=== PATIENT | male | born 1960 | race Caucasian/White ===

== ENCOUNTER 2019-08-09 10:39 | Day surgery (SDC) | payer BC ==
[2019-08-08 08:23] VITALS: BMI 31.4
[~2019-08-09 10:39] MED LIST: LACTATED RINGERS 1,000 ML IV SCH; LIDOCAINE 1% 20 ML VIAL (10MG/ML) FOR IV START INTRADERMA PRN
[2019-08-09 10:53] VITALS: TEMP 98.2
[2019-08-09] MEDS ORDERED: PROPOFOL 10 MG/ML 20 ML VIAL IV ONE (11:42)
--- NOTE | 2019-08-09 12:04 | P.PCN ---
Date of Procedure: 08/09/19 Procedure(s) Performed: BRIEF HISTORY: Patient is a 59-year-old pleasant male scheduled for an elective colonoscopy as a part of value should prior history of colon polyps. Last endoscopy was 6 years ago. PROCEDURE PERFORMED: Colonoscopy with snare polypectomy. PREOPERATIVE DIAGNOSIS: History of colon polyps. IV sedation per Anesthesia. PROCEDURE: After informed consent was obtained, the patient, was brought into the endoscopy unit. IV sedation was administered by Anesthesia under continuous monitoring. Digital rectal examination was normal. Initially the Olympus CF-160 flexible video colonoscope was then inserted in the rectum, gradually advanced into the cecum without any difficulty. Careful examination was performed as the scope was gradually being withdrawn. Ileocecal valve and the appendiceal orifice were visualized and appeared normal. Prep was excellent. Mucosa of the cecum, ascending colon, appeared normal. In the transverse colon there was a 7 mm broad-based polyp removed by snare polypectomy. In the descending colon there was a 3 mm polyp removed by snare polypectomy. In the sigmoid colon there was a 1 cm pedunculated polyp removed by snare polypectomy. Rest of the transverse colon, descending colon, sigmoid colon, and rectum appeared normal. Scattered left sided diverticulosis seen. Retroflexion was performed in the rectum and no lesions were seen. The patient tolerated the procedure well. IMPRESSION: 7 mm transverse colon polyp status post polypectomy 3 mm descending colon polyp status post polypectomy 1 cm; sigmoid polyp status post polypectomy Scattered sigmoid diverticulosis RECOMMENDATIONS: Findings of this examination were discussed with the patient as well as his family. He was advised to follow with the biopsy results and have a repeat surveillance colonoscopy in 5 years from [place] the biopsy results..
[2019-08-09 12:13] VITALS: RESP 16
[2019-08-09 12:27] VITALS: BP 102/65; PULSE 51
== END 2019-08-09 12:54 | disposition home or self-care (01) ==
LOC: ORWHC2ENDO 10:39
PROVIDERS: ATTEND Internal Medicine Gastroenterology
DX: Z12.11 Encounter for screening for malignant neoplasm of colon (principal); D12.3 Benign neoplasm of transverse colon; D12.4 Benign neoplasm of descending colon; D12.5 Benign neoplasm of sigmoid colon; K57.30 Diverticulosis of large intestine without perforation or abscess without bleeding; E78.5 Hyperlipidemia, unspecified; N40.0 Benign prostatic hyperplasia without lower urinary tract symptoms; Z86.010 Personal history of colon polyps; Z79.899 Other long term (current) drug therapy
CPT/HCPCS: 88305; 45385; J2704

== ENCOUNTER → 2020-07-09 | Outpatient (CLI) | payer BC | END | disposition home or self-care (01) | LOC: LABWHC1 14:13 | PROVIDERS: ATTEND Family Medicine | DX: Z03.818 Encounter for observation for suspected exposure to other biological agents ruled out (principal) | CPT/HCPCS: U0003; C9803 ==

== ENCOUNTER → 2021-03-18 | Outpatient (CLI) | payer BC | END | disposition home or self-care (01) | LOC: LABWHC1 09:20 | PROVIDERS: ATTEND Urology | DX: R97.20 Elevated prostate specific antigen [PSA] (principal) | CPT/HCPCS: 36415; 84153 ==

== ENCOUNTER → 2021-07-02 | Outpatient (CLI) | payer BC ==
--- NOTE | 2021-07-02 09:44 | XR ---
EXAMINATION TYPE: XR chest 2V DATE OF EXAM: 07/02/2021 COMPARISON: Right RIBS 04/18/2014 HISTORY: Prostate cancer, postop TECHNIQUE: Frontal and lateral views of the chest are obtained. FINDINGS: There is no focal air space opacity, pleural effusion, or pneumothorax seen. The cardiac silhouette size is within normal limits. The osseous structures are intact. IMPRESSION: No acute cardiopulmonary process.
--- NOTE | 2021-07-02 12:37 | CT ---
EXAMINATION TYPE: CT abdomen pelvis w con DATE OF EXAM: 07/02/2021 COMPARISON: Correlation nuclear medicine bone scan 07/02/2021 HISTORY: 61-year-old male C61, Prostate cancer TECHNIQUE: Contiguous axial scanning of the abdomen and pelvis following administration of 100 ml Omn ipaque 300 IV contrast. Delayed images through the kidneys and coronal/sagittal reconstructions perf ormed. CT DLP: 1695 mGycm Automated exposure control for dose reduction was used. FINDINGS: Heart normal size without pericardial effusion. Some minimal dependent atelectasis in the lower lungs . Liver mildly enlarged at 19.9 cm. No focal lesion is seen. Portal venous system is patent. No biliary ductal dilatation. Gallbladder, adrenal glands, spleen, and pancreas show no gross abnormality. A few scattered small cortical cysts in the kidneys measuring up to 1.1 cm. Symmetric uptake and excr etion of contrast from both kidneys. No dilated small bowel, free fluid, or free air. No mesenteric or retroperitoneal lymphadenopathy. Normal appendix. [id number] stool within the colon. Diverticulosis of the junction of the desce nding and sigmoid colon. No pericolic inflammatory change. Mild to moderate circumferential bladder wall thickening. Prostate gland measures 4.6 cm wide. There may have been a prior TURP but there is lobulated soft tis domenica extending along the right lateral margin of the funneling measuring 2.2 cm, refer to coronal imag e 65. No abnormal fluid collection in the pelvis. Left-sided pelvic phlebolith. No pelvic lymphadenopathy s een. Bones: Mild degenerative change of the hips. Small sclerotic focus posterior right femoral head neck junction typical of a bone island. Similarly in the left superior femoral head and both acetabulum. D egenerated levoconvex scoliosis of the lumbar spine. There is a transitional lumbosacral segment with left L5 hemisacralization. Hypertrophic facet arthropathy mid to lower lumbar spine. There is otherw ise, no suspicious sclerotic lesion identified. IMPRESSION: 1. SUSPECT PRIOR TURP. CLINICALLY CORRELATE. THERE IS 2.2 CM ABNORMAL SOFT TISSUE BULGING ALONG THE R IGHT lateral margin of the funneling likely relating to the patient's prostate cancer. 2. No suspicious lymphadenopathy to suggest metastatic disease. A few punctate sclerotic foci about b oth hips are most typical of benign bone islands. No definite suspicious sclerotic lesions. Correlate with PSA values.
--- NOTE | 2021-07-02 15:49 | NM ---
EXAMINATION TYPE: NM bone scan whole body DATE OF EXAM: 07/02/2021 COMPARISON: CT 07/02/2021 HISTORY: Prostate cancer Delayed whole-body scanning was performed following the injection of 23.2 mCi Tc 99m MDP. Images acq uired 5.75 hours post injection. FINDINGS: Focus of uptake involving the posterior right 11th rib corresponds to a focus of prior rib fracture a nd healing. Soft tissue uptake is within normal limits. Uptake within the feet, knees, hands and wris ts, elbows, shoulders and sternoclavicular joints is likely degenerative. Uptake in the cervical spin e is likely due to facet arthropathy. IMPRESSION: No convincing evidence of bony metastatic disease.
== END | disposition home or self-care (01) ==
LOC: RADCTMAIN 07:56
PROVIDERS: ATTEND Urology
DX: C61 Malignant neoplasm of prostate (principal)
CPT/HCPCS: 71046; 74177; 78306; A9503; Q9967

== ENCOUNTER → 2021-09-15 | Outpatient (CLI) | payer BC | END | disposition home or self-care (01) | LOC: LABWHC1 08:19 | PROVIDERS: ATTEND Urology | DX: C61 Malignant neoplasm of prostate (principal) | CPT/HCPCS: 36415; 84153 ==

== ENCOUNTER → 2021-12-20 | Outpatient (CLI) | payer BC | END | disposition home or self-care (01) | LOC: LABWHC1 09:20 | PROVIDERS: ATTEND Urology | DX: C61 Malignant neoplasm of prostate (principal) | CPT/HCPCS: 36415; 84153 ==

== ENCOUNTER → 2022-06-01 | Outpatient (CLI) | payer BC | END | disposition home or self-care (01) | LOC: LABWHC1 11:51 | PROVIDERS: ATTEND Urology | DX: C61 Malignant neoplasm of prostate (principal) | CPT/HCPCS: 36415; 84153 ==

== ENCOUNTER → 2022-11-29 | Outpatient (CLI) | payer BC | END | disposition home or self-care (01) | LOC: LABWHC1 09:56 | PROVIDERS: ATTEND Urology | DX: C61 Malignant neoplasm of prostate (principal) | CPT/HCPCS: 36415; 84153 ==

== ENCOUNTER → 2023-08-24 | Outpatient (CLI) | payer MEDICARE ==
--- NOTE | 2023-08-31 09:08 | PE ---
EXAMINATION TYPE: PET CT fusion skull to thigh DATE OF EXAM: 08/24/2023 COMPARISON: CT abdomen and pelvis 07/02/2021 Prior PET/CT: None HISTORY: Prostate cancer TECHNIQUE: Following the intravenous administration of 6.37 millicuries gallium labeled PSMA, whole body images are performed from the skull base to the midthigh. Images are reviewed on the computer i n the coronal, axial, and sagittal planes. Reconstructed rotating images are created on independent workstation and reviewed on the computer. A localization and attenuation correction CT is performed in conjunction with the PET scan. DLP: 100 5. mGycm SCAN: Subsequent FINDINGS: NECK: Normal uptake is seen in the salivary glands. THORAX: No abnormal uptake ABDOMEN: No abnormal uptake PELVIS: No abnormal uptake. Urinary bladder has some descent which may be postsurgical cystocele. Cor relate with surgical history. OSSEOUS STRUCTURES: No abnormal uptake LOCALIZATION CT: Fat-containing small inguinal hernias are present. Appendix appears normal COMPARISON: None IMPRESSION: 1. No suspicious uptake to confirm primary or metastatic prostate cancer
== END | disposition home or self-care (01) ==
LOC: RADPETMAIN 10:08
PROVIDERS: ATTEND Radiology Radiation Oncology
DX: C61 Malignant neoplasm of prostate (principal)
CPT/HCPCS: 78815; A9596

== ENCOUNTER → 2023-09-20 | Outpatient (CLI) | payer OTHER | END | disposition home or self-care (01) | LOC: LABWHC1 09:04 | PROVIDERS: ATTEND Radiology Radiation Oncology | DX: C61 Malignant neoplasm of prostate (principal) | CPT/HCPCS: 36415; 84153 ==

== ENCOUNTER → 2024-01-11 | Outpatient (CLI) | payer OTHER | END | disposition home or self-care (01) | LOC: LABWHC1 09:35 | PROVIDERS: ATTEND Radiology Radiation Oncology | DX: C61 Malignant neoplasm of prostate (principal) | CPT/HCPCS: 36415; 84153 ==

== ENCOUNTER → 2024-03-28 | Outpatient (CLI) | payer MEDICARE | END | disposition home or self-care (01) | LOC: LABWHC1 09:33 | PROVIDERS: ATTEND Radiology Radiation Oncology | DX: C61 Malignant neoplasm of prostate (principal) | CPT/HCPCS: 36415; 84153 ==

== ENCOUNTER → 2024-04-30 | Outpatient (CLI) | payer MEDICARE | END | disposition home or self-care (01) | LOC: LABWHC1 10:53 | PROVIDERS: ATTEND Radiology Radiation Oncology | DX: C61 Malignant neoplasm of prostate (principal) | CPT/HCPCS: 36415; 84153 ==

== ENCOUNTER → 2024-08-15 | Outpatient (CLI) | payer MEDICARE | END | disposition home or self-care (01) | LOC: LABWHC1 10:21 | PROVIDERS: ATTEND Radiology Radiation Oncology | DX: C61 Malignant neoplasm of prostate (principal) | CPT/HCPCS: 36415; 84153 ==

== ENCOUNTER → 2024-08-29 | Outpatient (CLI) | payer MEDICARE ==
--- NOTE | 2024-08-29 09:55 | XR ---
EXAMINATION TYPE: XR knee complete bilateral DATE OF EXAM: 08/29/2024 COMPARISON: NONE CLINICAL INDICATION: Male, 64 years old with history of M17.10 UNILATERAL PRIMARY OSTEOARTHRITIS, UNS PECIF; TECHNIQUE: Three views are submitted. FINDINGS: Mild medial compartment and patellofemoral compartment narrowing with marginal spurring but no erosiv e changes bilaterally. Trace amount of fluid in the suprapatellar bursa bilaterally.. Osseous struct ures are intact. No acute fracture seen. IMPRESSION: 1. Mild bilateral osteoarthritis. [facility], , 08/29/2024 9:53 AM
== END | disposition home or self-care (01) ==
LOC: RADXRMAIN 09:20
PROVIDERS: ATTEND Family Medicine
DX: M17.0 Bilateral primary osteoarthritis of knee (principal)

== ENCOUNTER 2024-11-25 05:48 | Day surgery (SDC) | payer MEDICARE ==
[2024-11-21 11:30] VITALS: BMI 30.9
[2024-11-25] MEDS: IV FLUID CONTINUATION 1,000 ML IV ONE (06:31)
[2024-11-25] MEDS: LACTATED RINGERS 1,000 ML IV SCH (06:35)
[2024-11-25] MEDS: ACETAMINOPHEN TAB 500 MG TAB PO PRN (06:35)
[2024-11-25] MEDS: ONDANSETRON 4 MG/2 ML VIAL IVP ONE (06:35)
[2024-11-25] MEDS: DEXAMETHASONE SOD PHOSPHATE 4 MG/ML 1 ML VIAL IV ONE (06:35)
[2024-11-25] MEDS: HEPARIN SODIUM,PORCINE 5,000 UNIT/ML 1 ML VIAL SQ PRN (06:39)
[2024-11-25] MEDS ORDERED: MIDAZOLAM 2 MG/2 ML VIAL IV PRN (07:00)
[2024-11-25] MEDS ORDERED: ROCURONIUM 10 MG/ML (5 ML VIAL) IV ONE (07:24)
[2024-11-25] MEDS ORDERED: fentaNYL (PF) 50 MCG/ML 2 ML AMP ONE (07:24)
[2024-11-25] MEDS ORDERED: SUCCINYLCHOLINE CHLORIDE 200 MG/10 ML VIAL IV ONE (07:24)
[2024-11-25] MEDS ORDERED: PROPOFOL 10 MG/ML 20 ML VIAL IV ONE (07:24)
[2024-11-25] MEDS ORDERED: KETOROLAC 15 MG/ML 1 ML VIAL ONE (07:24)
[2024-11-25] MEDS ORDERED: NEOSTIGMINE 1 MG/ML 10 ML VIAL ONE (07:24)
[2024-11-25] MEDS ORDERED: GLYCOPYRROLATE 0.2 MG/ML 2 ML VIAL ONE (07:24)
[2024-11-25] MEDS: TAMSULOSIN 0.4 MG CAP.ER.24H PO STA (07:27)
--- NOTE | 2024-11-25 07:28 | P.GSHP ---
History of Present Illness H&P Date: 11/25/24 Chief Complaint: Left inguinal hernia 64-year-old male here today for elective repair left inguinal hernia. Patient has had increasing swelling there for the last 2 years. Mild soreness at times. Does seem to be impacting his activities lately. History of previous da Yvrose prostate. Past Medical History Past Medical History: Hyperlipidemia, Pulmonary Embolus (PE) Additional Past Medical History / Comment(s): left inguinal hernia,prostate CA dx radiation tx w/ Dr Rizvi, PE post back surgery History of Any Multi-Drug Resistant Organisms: None Reported Past Surgical History: Prostate Surgery Additional Past Surgical History / Comment(s): colonoscopies,prostatectomy,L3-L4 spinal fusion 2021,turp Past Anesthesia/Blood Transfusion Reactions: No Reported Reaction Additional Past Anesthesia/Blood Transfusion Reaction / Comment(s): no blood transfusion Smoking Status: Never smoker - Past Family History Mother Family Medical History: Cancer Additional Family Medical History / Comment(s): female CA Brother(s) Family Medical History: Cancer Additional Family Medical History / Comment(s): lung Father Family Medical History: Cancer Additional Family Medical History / Comment(s): lung Sister(s) Family Medical History: Cancer, Myocardial Infarction ([place]) Additional Family Medical History / Comment(s): breast CA Medications and Allergies Home Medications Medication Instructions Recorded Confirmed Type Simvastatin 40 mg PO HS 08/08/19 11/21/24 History Ibuprofen [Motrin] 400 mg PO Q8HR PRN 11/21/24 11/21/24 History Allergies Allergy/AdvReac Type Severity Reaction Status Date / Time No Known Allergies Allergy Verified 11/25/24 06:11 Surgical - Exam Vital Signs Temp Pulse Resp BP Pulse Ox 97.5 F L 57 L 16 121/70 97 11/25/24 06:21 11/25/24 06:21 11/25/24 06:21 11/25/24 06:21 11/25/24 06:21 Physical exam: General: Well-developed, well-nourished HEENT: Normocephalic, sclerae nonicteric Abdomen: Nontender, nondistended, reducible left inguinal hernia Extremities: No edema Neuro: Alert and oriented Assessment and Plan (1) Left inguinal hernia Narrative/Plan: 64-year-old male with left inguinal hernia. Will proceed with open repair reducible left inguinal hernia with mesh. Risks of bleeding, infection, recurrence, chronic pain, bladder and bowel injury, numbness, scarring, and anesthesia related complications were discussed. The correlation between hernia recurrence, obesity and smoking were reviewed in detail. The patient understands and wishes to proceed. Current Visit: Yes Status: Acute Code(s): K40.90 - UNIL INGUINAL HERNIA, W/O OBST OR GANGR, NOT SPCF RECUR OMED Code(s): 425072320
[2024-11-25] MEDS: BUPIVACAINE (PF) 0.5% 30 ML VIAL SQ ONE ×2 (08:50)
[2024-11-25] MEDS: LACTATED RINGERS 1,000 ML IV ONE (08:59)
[2024-11-25 09:11] VITALS: TEMP 98.6
--- NOTE | 2024-11-25 09:20 | P.OP ---
Date of Procedure: 11/25/24 Procedure(s) Performed: PREOPERATIVE DIAGNOSIS: Left inguinal hernia POSTOPERATIVE DIAGNOSIS: Moderate sized left indirect inguinal hernia PROCEDURE: Open repair left inguinal hernia with mesh SURGEON: Dr. Pope ANESTHESIA: General EBL: 15 cc OPERATIVE PROCEDURE DETAILS: Patient was placed in the operating table in the supine position and placed under general anesthesia. An oblique incision was made in the left groin. Dissection down through the subcutaneous tissues took place using electrocautery. The external oblique fascia was incised using a scalpel. This opening was lengthened using the Metzenbaum scissors. The spermatic cord was encircled with a [place] drain. The spermatic cord structur es were identified and preserved. Careful dissection revealed a moderate-sized indirect hernia sac. This was carefully dissected back to the internal inguinal ring where it was ligated using 2 separate 0 silk stick tie sutures. A 3" x 6" Prolene mesh was cut to fit on the exposed fascia. This was sutured to the pubic tubercle the folding edge of the inguinal ligament and the conjoined tendon using interrupted 0 Vicryl sutures. A slit was created in the mesh and the mesh was wrapped around the spermatic cord and sutured back to itself. The external oblique was then reapproximated using a running 2-0 Vicryl suture. The subcutaneous tissues were reapproximated using a 3-0 Vicryl sutures. The skin was closed using 4-0 Monocryl sutures. Skin glue and sterile dressings were then applied. TYPE OF MESH USED: 3 inch x 6 inch flat Prolene LOCATION OF MESH: [place] FIXATION: 0 Vicryl PREOPERATIVE DISCUSSION ON SMOKING CESSASTION: Yes PREOPERATIVE DISCUSSION ON MORBID OBESITY: Yes PREOPERATIVE DISCUSSION ON APPROPRIATE USE OF NARCOTIC USE: Yes PREOPERATIVE EDUCATION: Multi Modal, Smoking Cessation and Weight Loss with BMI over 35. DISPOSITION: Stable to recovery room
[2024-11-25] MEDS: HYDROmorphone 0.5 MG/0.5 ML SYRINGE IVP PRN (09:25)
[2024-11-25 10:55] VITALS: BP 119/70; PULSE 46; RESP 18
[2024-11-25] MEDS ORDERED: ACETAMINOPHEN TAB 325 MG TAB PO SCH (12:00)
[2024-11-25] MEDS ORDERED: IBUPROFEN 600 MG TAB PO SCH (15:00)
== END 2024-11-25 11:29 | disposition home or self-care (01) ==
LOC: OR 05:48
PROVIDERS: ATTEND Surgery
DX: K40.90 Unilateral inguinal hernia, without obstruction or gangrene, not specified as recurrent (principal); E78.5 Hyperlipidemia, unspecified; Z86.711 Personal history of pulmonary embolism; Z85.46 Personal history of malignant neoplasm of prostate; Z90.79 Acquired absence of other genital organ(s); Z82.49 Family history of ischemic heart disease and other diseases of the circulatory system; Z80.3 Family history of malignant neoplasm of breast; Z79.899 Other long term (current) drug therapy
CPT/HCPCS: 49505; C1781; J0330; J1644; J1100; J2710; J0690; J2405; J3010; J1885; J2704; J1171; J0665; J1596; 88302

== ENCOUNTER → 2024-12-16 | Outpatient (CLI) | payer MEDICARE | END | disposition home or self-care (01) | LOC: LABWHC1 10:21 | PROVIDERS: ATTEND Radiology Radiation Oncology | DX: C61 Malignant neoplasm of prostate (principal) | CPT/HCPCS: 36415; 84153 ==